=== PATIENT | male | born 1930 | race Caucasian/White ===

== ENCOUNTER 2018-05-27 10:00 | Inpatient (IN) | payer MEDICARE, MEDICAID ==
[~2018-05-27] VITALS: Ht 162.6 cm; Wt 54.9 kg
[~2018-05-27 10:00] MED LIST: ALBU2.5V13 IH; ASPI-1158 PO; ATOR40TA70 PO; ATROV INH; DICL100G16 TP; DOCU-150 PO; ERGO500013 PO; ESCI10TA54 PO; GLIP5TAB12 PO; HYDR-4005 PO; IBUP-2028 PO; METO-396 PO; PIOG15TA6 PO; TAMS0.4C31 PO; TIOT18CA3 INH; [UNRECOGNIZED DRUG - CODE] TOP
[2018-05-27] MEDS ORDERED: SODIUM CHLORIDE 0.9% 1000ML BAG (SEPSIS BOLUS) IV ONE (10:30)
[2018-05-27] MEDS ORDERED: LEVOFLOXACIN 750MG PREMIX 150 ML IV ONE (10:30)
[2018-05-27 11:35] LABS: HEMATOCRIT. 33.1 % (42.0-52.0); MEAN CORPUSCULAR HEMOGLOBIN 29.1 pg (28.0-32.0); MEAN PLATELET VOLUME 7.9 fl (7.4-10.4); PLATELET 445 x1000/uL (130-400); RED BLOOD CELL COUNT 3.76 mill/uL (4.7-6.1); RED CELL DISTRIBUTION WIDTH 20.9 % (11.6-14.6)
[2018-05-27 11:40] LABS: CHLORIDE 104 mEq/L (98-107)
[2018-05-27 11:42] LABS: INR 1.1; PROTHROMBIN TIME 11.4 sec (9.1-11.1)
[2018-05-27 12:08] LABS: PLATELET ESTIMATE INCREASED
[2018-05-27] MEDS ORDERED: OLANZAPINE 10 MG/VIAL IM ONE (13:00)
[2018-05-27] MEDS ORDERED: MAGNESIUM SULFATE 2 GM in DEXTROSE 5% WATER 50 ML IV NR (13:30)
[2018-05-27 16:39] LABS: CLARITY URINE CLEAR (CLEAR); COLOR URINE YELLOW (YELLOW); KETONES URINE TRACE (NEGATIVE); LEUKOCYTE ESTERASE URINE TRACE (NEGATIVE); NITRITE URINE NEGATIVE (NEGATIVE); OCCULT BLOOD URINE NEGATIVE (NEGATIVE); PH URINE 5.5 (4.5-8.0); PROTEIN URINE TRACE (NEGATIVE); SPECIFIC GRAVITY URINE 1.022 (1.005-1.030)
[2018-05-27 21:00] VITALS: BP 114/47
[2018-05-27] MEDS ORDERED: NA PHOS,M-B/NA PHOS,DI-BA ENEMA 118ML PR PRN (21:15)
[2018-05-27] MEDS ORDERED: GUAIFENESIN 200MG/10ML SUGAR FREE UDC PO PRN (21:15)
[2018-05-27] MEDS ORDERED: IPRATROPIUM/ALBUTEROL 0.5-3(2.5)MG/3ML NEB INH PRN (21:15)
[2018-05-27] MEDS ORDERED: ONDANSETRON HCL 4MG/2ML VIAL IV PRN (21:15)
[2018-05-27] MEDS ORDERED: LORAZEPAM 2MG/ML CPJ IV PRN (21:15)
[2018-05-27] MEDS ORDERED: ACETAMINOPHEN 325MG TABLET PO PRN (21:15)
[2018-05-27] MEDS ORDERED: CLONIDINE 0.1MG TABLET PO PRN (21:15)
[2018-05-27] MEDS ORDERED: DOCUSATE SODIUM 100MG CAPSULE PO PRN (21:15)
[2018-05-27] MEDS ORDERED: ONDANSETRON 4MG ODT PO PRN (21:30)
[2018-05-27] MEDS: DEXT 5%/0.45% NACL 1000ML 1,000 ML IV SCH (23:11)
[2018-05-28] VITALS (7 sets, daily range): BP systolic 89–120; BP diastolic 41–84
[2018-05-28] MEDS: BLOOD SUGAR DIAGNOSTIC STRIP TEST SCH ×4 (07:50→21:00)
[2018-05-28] MEDS ORDERED: DEXTROSE 50% WATER 50ML SYRINGE IV PRN (08:00)
[2018-05-28] MEDS: INSULIN LISPRO 100 UNITS/ML SUBCUT SCH ×4 (08:09→22:14)
[2018-05-28 09:38] LABS: HEMATOCRIT. 26.9 % (42.0-52.0); HEMOGLOBIN. 9.1 g/dL (14.0-18.0); MEAN CORPUSCULAR HEMOGLOBIN 30.2 pg (28.0-32.0); MEAN CORPUSCULAR VOLUME 88.8 fL (80.0-94.0); MEAN PLATELET VOLUME 7.6 fl (7.4-10.4); PLATELET 317 x1000/uL (130-400); RED BLOOD CELL COUNT 3.02 mill/uL (4.7-6.1); RED CELL DISTRIBUTION WIDTH 21.3 % (11.6-14.6)
[2018-05-28 09:55] LABS: CHLORIDE 107 mEq/L (98-107)
[2018-05-28] MEDS ORDERED: ERGOCALCIFEROL 50000UNITS CAPSULE PO SCH (11:00)
[2018-05-28] MEDS ORDERED: MAGNESIUM SULFATE 2 GM in DEXTROSE 5% WATER 50 ML IV NR (11:00)
[2018-05-28] MEDS: DEXT 5%/0.45% NACL 1000ML 1,000 ML IV SCH (11:07)
[2018-05-28 13:46] LABS: PLATELET ESTIMATE NORMAL
[2018-05-28] MEDS: TAMSULOSIN HCL 0.4MG SR CAPSULE PO SCH (22:02)
[2018-05-28] MEDS: ATORVASTATIN CALCIUM 40MG TABLET PO SCH (22:03)
[2018-05-29] MEDS: DEXT 5%/0.45% NACL 1000ML 1,000 ML IV SCH (06:23)
[2018-05-29] MEDS: BLOOD SUGAR DIAGNOSTIC STRIP TEST SCH ×4 (07:20→21:00)
[2018-05-29] MEDS: INSULIN LISPRO 100 UNITS/ML SUBCUT SCH ×4 (07:46→22:37)
[2018-05-29 08:00] VITALS: BP 102/41
[2018-05-29 12:00] VITALS: BP 102/38
[2018-05-29 12:38] LABS: HEMATOCRIT. 29.9 % (42.0-52.0); MEAN CORPUSCULAR HEMOGLOBIN 29.5 pg (28.0-32.0); MEAN CORPUSCULAR VOLUME 87.9 fL (80.0-94.0); MEAN PLATELET VOLUME 7.4 fl (7.4-10.4); PLATELET 374 x1000/uL (130-400); RED CELL DISTRIBUTION WIDTH 21.3 % (11.6-14.6)
[2018-05-29 12:56] LABS: CHLORIDE 105 mEq/L (98-107)
[2018-05-29 13:28] LABS: PLATELET ESTIMATE NORMAL
[2018-05-29] MEDS ORDERED: POTASSIUM CHLORIDE INJ 40 MEQ in DEXT 5% WATER 500 ML IV SCH (15:00)
[2018-05-29 16:00] VITALS: BP 98/44
[2018-05-29 20:00] VITALS: BP 100/50
[2018-05-29] MEDS: ATORVASTATIN CALCIUM 40MG TABLET PO SCH ×2 (21:00→21:13)
[2018-05-29] MEDS: TAMSULOSIN HCL 0.4MG SR CAPSULE PO SCH ×2 (21:00→21:13)
[2018-05-30] VITALS (7 sets, daily range): BP systolic 97–127; BP diastolic 34–73
[2018-05-30] MEDS: DEXT 5%/0.45% NACL 1000ML 1,000 ML IV SCH (01:08)
[2018-05-30] MEDS: INSULIN LISPRO 100 UNITS/ML SUBCUT SCH ×4 (07:50→22:32)
[2018-05-30] MEDS: BLOOD SUGAR DIAGNOSTIC STRIP TEST SCH ×4 (08:11→22:32)
[2018-05-30] MEDS: ATORVASTATIN CALCIUM 40MG TABLET PO SCH (20:52)
[2018-05-30] MEDS: TAMSULOSIN HCL 0.4MG SR CAPSULE PO SCH (20:53)
[2018-05-31] VITALS: BP 119/70
[2018-05-31 04:00] VITALS: BP 116/72
[2018-05-31] MEDS: BLOOD SUGAR DIAGNOSTIC STRIP TEST SCH (06:23)
[2018-05-31] MEDS: INSULIN LISPRO 100 UNITS/ML SUBCUT SCH (07:46)
[2018-05-31 08:00] VITALS: BP 111/51
== END 2018-05-31 11:07 | DRG 314 ==
LOC: ER 10:31 → EDBEDREQTM 16:53 → EDBEDREQ 16:53 → ENRESERV 17:03 → CANRESERV 17:03 → 6EST 18:15 → EDBEDREQ 18:17 → EDBEDREQSVC 18:17 → EDBEDREQTM 18:19 → EDBEDREQ 18:19 → ENRESERV 18:41 → EDBEDREQ 20:20
PROVIDERS: ADMIT Hospitalist; ATTEND Hospitalist
DX: I95.9 Hypotension, unspecified (principal); G93.40 Encephalopathy, unspecified; E11.649 Type 2 diabetes mellitus with hypoglycemia without coma; J44.9 Chronic obstructive pulmonary disease, unspecified; N40.0 Benign prostatic hyperplasia without lower urinary tract symptoms; D64.9 Anemia, unspecified; F03.90 Unspecified dementia, unspecified severity, without behavioral disturbance, psychotic disturbance, mood disturbance, and anxiety; I11.0 Hypertensive heart disease with heart failure; I50.9 Heart failure, unspecified; R09.02 Hypoxemia; Z82.49 Family history of ischemic heart disease and other diseases of the circulatory system; Z79.82 Long term (current) use of aspirin; Z79.899 Other long term (current) drug therapy
CPT/HCPCS: 36415; 70450; 71045; 80053; 81003; 82962; 83605; 83735; 85025; 85610; 87040; 87086; 93005; 96361; 96365; 96372; 99291; J1815; J1956; J2060; J3475; J3480; J3490; J7030; J7060